=== PATIENT | female | born 1930 | race Caucasian/White ===

== ENCOUNTER 2017-03-03 20:07 | Emergency (ER) | payer OTHER ==
[2017-03-03 20:24] VITALS: BP 143/65; PULSE 69; TEMP 98.5; BMI 18.3
--- NOTE | 2017-03-03 20:43 | PDOC ---
History of Present Illness - General History Source: Patient Exam Limitations: No Limitations - History of Present Illness Initial Comments: 03/03/17 20:48 The patient is an 86 year old female with a significant past medical history of HIV, who presents to the ER s/p trip and fall earlier today. Patient reports while she was walking on the street by herself, she tripped and fell to the ground. Patient reports she sustained left knee and right arm abrasions with associated pain. On interview, patient states she has difficulty moving her left leg secondary to pain. Denies loss of consciousness Denies head or neck trauma Denies nausea, vomiting Denies weakness Surgical Hx: s/p right knee replacement PCP: Dr. Maykel Damian (in [facility]) <Rosario Quintanilla - Last Filed: 03/03/17 22:31> - General History Source: Patient <BlairLenny thompson - Last Filed: 03/03/17 23:23> - General Chief Complaint: Injury Stated Complaint: FALL Time Seen by Provider: 03/03/17 20:43 Past History <Rosario Quintanilla - Last Filed: 03/03/17 22:31> - Past Medical History HIV: Yes - Surgical History Appendectomy: Yes - Psycho/Social/Smoking Cessation Hx Suicidal Ideation: No Smoking Status: No Smoking History: Never smoked Have you smoked in the past 12 months: No Number of Cigarettes Smoked Daily: 0 Information on smoking cessation initiated: No Hx Alcohol Use: No Drug/Substance Use Hx: No <Lenny Bryant - Last Filed: 03/03/17 23:23> - Past Medical History Allergies/Adverse Reactions: Allergies Allergy/AdvReac Type Severity Reaction Status Date / Time aspirin Allergy Verified 03/03/17 20:22 Penicillins Allergy Verified 03/03/17 20:22 Home Medications: Ambulatory Orders Emtricitab/Rilpivirine/Tenofov [Complera Tablet -] 1 each PO DAILY 05/11/13 Raltegravir [Isentress -] 400 mg PO BID 05/11/13 Sertraline HCl [Zoloft] 50 mg PO DAILY 05/11/13 Sulfamethoxazole/Trimethoprim [Bactrim DS -] 1 tab PO BID 05/11/13 Levofloxacin [Levaquin -] 250 mg PO Q48H #7 tablet 03/03/17 Review of Systems - Review of Systems Able to Perform ROS?: Yes Comments:: 03/03/17 20:48 CONSTITUTIONAL: Absent: fever, no chills, no fatigue EYES: Absent: visual changes ENT: Absent: ear pain, no sore throat CARDIOVASCULAR: Absent: chest pain, no palpitations RESPIRATORY: Absent: cough, no SOB GI: Absent: abdominal pain, no nausea, no vomiting, no constipation, no diarrhea GENITOURINARY: Absent: dysuria, no frequency, no hematuria MUSCULOSKELETAL: Present: (+) left knee and right knee pain Absent: back pain, no arthralgia, no myalgia SKIN: Present: (+) left knee and right knee superficial abrasions Absent: rash NEURO: Absent: headache <Uts,Rosario - Last Filed: 03/03/17 22:31> *Physical Exam - Vital Signs Last Vital Signs Temp Pulse Resp BP Pulse Ox 98.5 F 69 14 143/65 99 03/03/17 20:22 03/03/17 20:22 03/03/17 20:22 03/03/17 20:22 03/03/17 20:22 - Physical Exam Comments: 03/03/17 20:49 GENERAL: Well-appearing, well-nourished. No apparent distress. HEENT: Normocephalic, atraumatic. PERRL, EOM intact. CARDIOVASCULAR: Normal S1, S2. Regular rate and rhythm. PULMONARY: Clear to auscultation bilaterally. ABDOMEN: Soft, non-distended, non-tender. EXTREMITIES: Moderate swelling around left anterior knee. Decreased range of motion of the left knee secondary to pain. SKIN: Small abrasion on the right elbow and left anterior knee. Warm, dry. NEUROLOGICAL: No raccoon sign. No focal neurological deficits. <Uts,Rosario - Last Filed: 03/03/17 22:31> - Vital Signs Last Vital Signs Temp Pulse Resp BP Pulse Ox 98.5 F 69 14 143/65 99 03/03/17 20:22 03/03/17 20:22 03/03/17 20:22 03/03/17 20:22 03/03/17 20:22 <Lenny Bryant - Last Filed: 03/03/17 23:23> Medical Decision Making - Medical Decision Making 03/03/17 22:[address] Morris (Ortho) <DwightRosario - Last Filed: 03/03/17 22:31> - Medical Decision Making 03/03/17 23:00 Dr. Bryant: The scribe's documentation has been prepared under my direction and personally reviewed by me in its entirery. I confirm that the note above accurately reflects all work, treatment, procedures, and medical decision making performed by me. 03/03/17 23:10 <Lenny Bryant - Last Filed: 03/03/17 23:23> *DC/Admit/Observation/Transfer - Attestations Scribe Attestion: 03/03/17 20:51 Documentation prepared by Rosario Quintanilla, acting as medical transcription editor for Lenny Bryant DO. <Rosario Quintanilla - Last Filed: 03/03/17 22:31> - Discharge Dispostion Admit: No <Lenny Bryant - Last Filed: 03/03/17 23:23> Diagnosis at time of Disposition: Patella fracture Qualifiers: Encounter type: initial encounter Fracture type: closed Fracture morphology: unspecified fracture morphology Fracture alignment: displaced Laterality: left Qualified Code(s): S82.002A - Unspecified fracture of left patella, initial encounter for closed fracture UTI (urinary tract infection) Qualifiers: Urinary tract infection type: site unspecified Hematuria presence: without hematuria Qualified Code(s): N39.0 - Urinary tract infection, site not specified - Discharge Dispostion Disposition: HOME Condition at time of disposition: Stable - Prescriptions Prescriptions: Levofloxacin [Levaquin -] 250 mg PO Q48H #7 tablet - Referrals Referrals: STAFF,NOT ON [Primary Care Provider] - Juaquin Morris MD [Staff Physician] - - Patient Instructions Printed Discharge Instructions: DI for Patella Fracture, DI for Urinary Tract Infection (UTI) Additional Instructions: Please follow up with your doctor for Orthopedic referral or the doctor given to you in the ED. Rest, ice elevate leg. use knee immobilizer for walking.
[2017-03-03 22:41] LABS: URINE APPEARANCE SLCLOUDY; URINE BILIRUBIN NEGATIVE (NEGATIVE); URINE COLOR YELLOW; URINE GLUCOSE (UA) NEGATIVE (NEGATIVE); URINE KETONE NEGATIVE (NEGATIVE); URINE NITRITE NEGATIVE (NEGATIVE); URINE PROTEIN NEGATIVE (NEGATIVE); URINE UROBILINOGEN NEGATIVE E.U./dl (0.2-1.0)
[2017-03-03 22:44] LABS: URINE BLOOD 1+ (NEGATIVE); URINE LEUK ESTERASE 3+ (NEGATIVE)
[2017-03-03 22:48] LABS: URINE MUCUS RARE; URINE RBC 1 /hpf (0-3); URINE WBC 55 /hpf (3-5)
[2017-03-03] MEDS ORDERED: LEVOFLOXACIN 250 MG TABLET (FP) PO ONE (23:03)
[2017-03-03] MEDS ORDERED: LEVOFLOXACIN 250 MG TABLET (FP) ONE (23:09)
== END 2017-03-03 23:23 | disposition home or self-care (01) ==
LOC: JER 20:07
DX: S89.82XA Other specified injuries of left lower leg, initial encounter (principal); S80.212A Abrasion, left knee, initial encounter; S80.211A Abrasion, right knee, initial encounter; S50.311A Abrasion of right elbow, initial encounter; W18.39XA Other fall on same level, initial encounter; Y93.89 Activity, other specified; Y92.480 Sidewalk as the place of occurrence of the external cause; Z21 Asymptomatic human immunodeficiency virus [HIV] infection status
CPT/HCPCS: 73562-TC-LT; 81003; 81015; 99282-25